=== PATIENT | male | born 1955 | race Caucasian/White ===

== ENCOUNTER 2017-11-06 14:11 | Emergency (ER) | payer BC ==
[~2017-11-06] VITALS: Ht 180.3 cm; Wt 76.7 kg
[~2017-11-06 14:11] MED LIST: ASPI81TA31 PO; ATOR40TA PO; OMEG1000 PO; SILD50TA PO
[2017-11-06] MEDS ORDERED: LIDOCAINE HCL 1% 20 ML VIAL IJ ONE (15:30)
--- NOTE | 2017-11-06 16:08 | NUR ---
Patient discharged to home in stable conditon. Written and verbal after care instructions given to patient and family. Patient and family verbalized understanding of instructions.
== END 2017-11-06 16:12 | disposition home or self-care (01) ==
LOC: ER 14:11
DX: S51.812A Laceration without foreign body of left forearm, initial encounter (principal); I77.71 Dissection of carotid artery; Z79.82 Long term (current) use of aspirin; Z86.73 Personal history of transient ischemic attack (TIA), and cerebral infarction without residual deficits; E78.5 Hyperlipidemia, unspecified; W20.8XXA Other cause of strike by thrown, projected or falling object, initial encounter; Y93.89 Activity, other specified; Y92.89 Other specified places as the place of occurrence of the external cause; Y99.8 Other external cause status
CPT/HCPCS: A4217; A4663; J3490